=== PATIENT | male | born 1985 | race African-American/Black ===

== ENCOUNTER 2018-04-11 18:12 | Emergency (ER) | payer OTHER ==
[~2018-04-11] VITALS: Ht 182.9 cm; Wt 99.8 kg
[2018-04-11] MEDS ORDERED: MEDROLDOSEPACK PO (19:18)
[2018-04-11] MEDS ORDERED: CYCLOBENZAPRINE5 MG PO (19:18)
[2018-04-11] MEDS ORDERED: NORCO 10-325 T1 EACH PO (19:18)
[2018-04-11 19:50] VITALS: BP 167/102
== END 2018-04-11 19:50 | disposition home or self-care (01) ==
LOC: ER 18:12
DX: M54.5 Low back pain (principal)